=== PATIENT | male | born 1950 | race African-American/Black ===

== ENCOUNTER 2018-01-10 01:21 | Inpatient (IN) | payer OTHER ==
[~2018-01-10] VITALS: Ht 172.7 cm; Wt 94.3 kg
[2018-01-10 03:20] LABS: BASOPHILS % 0.4 % (0.0-2.0); EOSINOPHILS % 2.3 % (0.0-5.0); HEMOGLOBIN. 15.1 g/dL (14.0-18.0); LYMPHOCYTES % 25.4 % (20.0-50.0); MEAN CORPUSCULAR HEMOGLOBIN 28.2 pg (28.0-32.0); MEAN CORPUSCULAR VOLUME 83.9 fL (80.0-94.0); MEAN PLATELET VOLUME 9.1 fl (7.4-10.4); MONOCYTES % 5.7 % (2.0-8.0); NEUTROPHILS % 66.2 % (40.0-76.0); PLATELET 277 x1000/uL (130-400); RED BLOOD CELL COUNT 5.36 mill/uL (4.7-6.1); RED CELL DISTRIBUTION WIDTH 14.6 % (11.6-14.6)
[2018-01-10 03:27] LABS: CHLORIDE 105 mEq/L (98-107)
[2018-01-10 03:34] LABS: D-DIMER 0.99 mg/L FEU (<0.50); PARTIAL THROMBOPLASTIN TIME 26.1 sec (23.4-31.0); PROTHROMBIN TIME 10.1 sec (9.1-11.1)
[2018-01-10] MEDS ORDERED: ENOXAPARIN 80MG/0.8ML SYR SUBCUT NR (04:15)
[2018-01-10] MEDS ORDERED: ASPIRIN 325MG EC TABLET PO ONE (05:00)
[2018-01-10] MEDS ORDERED: ACETAMINOPHEN 650MG/20.3ML UDC GT PRN (07:45)
[2018-01-10] MEDS ORDERED: HYDROCODONE/ACETAMINOPHEN 5/325MG TABLET PO PRN (07:45)
[2018-01-10] MEDS ORDERED: MAGNESIUM/ALUMINUM HYDROXIDE/SIMETHICONE 30ML UDC PO PRN (07:45)
[2018-01-10] MEDS ORDERED: ACETAMINOPHEN 650MG SUPP PR PRN (07:45)
[2018-01-10] MEDS ORDERED: LORAZEPAM 0.5MG TABLET PO PRN (07:45)
[2018-01-10] MEDS ORDERED: GUAIFENESIN 200MG/10ML SUGAR FREE UDC PO PRN (07:45)
[2018-01-10] MEDS ORDERED: IPRATROPIUM/ALBUTEROL 0.5-3(2.5)MG/3ML NEB INH PRN (07:45)
[2018-01-10] MEDS ORDERED: ACETAMINOPHEN 325MG TABLET PO PRN (07:45)
[2018-01-10 09:00] VITALS: BP 160/80
[2018-01-10] MEDS ORDERED: DEXT 5%/0.45% NACL 1000ML 1,000 ML IV ONE (09:04)
[2018-01-10] MEDS ORDERED: ONDANSETRON 4MG ODT PO PRN (09:15)
[2018-01-10] MEDS ORDERED: CLONIDINE 0.2MG TABLET PO PRN (09:30)
[2018-01-10] MEDS: NITROGLYCERIN OINT 1GM/INCH UDPKT TD SCH ×4 (10:20→22:00)
[2018-01-10] MEDS: AMLODIPINE 5MG TABLET PO SCH ×2 (10:20→11:19)
[2018-01-10] MEDS ORDERED: ALLOPURINOL 100 MG TABLET PO SCH (11:00)
[2018-01-10 11:46] LABS: BASOPHILS % 0.4 % (0.0-2.0); EOSINOPHILS % 1.7 % (0.0-5.0); HEMATOCRIT. 43.2 % (42.0-52.0); HEMOGLOBIN. 14.7 g/dL (14.0-18.0); LYMPHOCYTES % 31.4 % (20.0-50.0); MEAN CORPUSCULAR HEMOGLOBIN 28.5 pg (28.0-32.0); MEAN PLATELET VOLUME 9.2 fl (7.4-10.4); MONOCYTES % 4.4 % (2.0-8.0); NEUTROPHILS % 62.1 % (40.0-76.0); PLATELET 271 x1000/uL (130-400); RED BLOOD CELL COUNT 5.14 mill/uL (4.7-6.1); RED CELL DISTRIBUTION WIDTH 14.4 % (11.6-14.6)
[2018-01-10 11:56] LABS: CHLORIDE 107 mEq/L (98-107)
[2018-01-10 12:00] VITALS: BP 168/88
[2018-01-10 12:05] LABS: CREATINE KINASE 161 IU/L (39-308)
[2018-01-10 12:08] LABS: CREATINE KINASE MB FRACTION 4.7 ng/mL (0.5-3.6)
[2018-01-10 12:45] VITALS: BP 160/80
[2018-01-10] MEDS ORDERED: ALPRAZOLAM 0.5 MG TABLET PO PRN (14:21)
[2018-01-10] MEDS: CLONIDINE 0.1MG TABLET PO PRN ×2 (14:30→22:58)
[2018-01-10] MEDS ORDERED: NICOTINE 7MG PATCH TD SCH (14:30)
[2018-01-10] MEDS ORDERED: IOHEXOL-350 100 ML BOTTLE ONE (15:20)
[2018-01-10 16:00] VITALS: BP 163/85
[2018-01-10 16:57] LABS: CLARITY URINE CLEAR (CLEAR); COLOR URINE YELLOW (YELLOW); KETONES URINE NEGATIVE (NEGATIVE); LEUKOCYTE ESTERASE URINE NEGATIVE (NEGATIVE); NITRITE URINE NEGATIVE (NEGATIVE); OCCULT BLOOD URINE NEGATIVE (NEGATIVE); PROTEIN URINE 1+ (NEGATIVE); UROBILINOGEN URINE 0.2 E.U./dL (0.2-1.0)
[2018-01-10 17:06] LABS: CREATINE KINASE MB FRACTION 4.3 ng/mL (0.5-3.6)
[2018-01-10 17:13] LABS: *AMPHETAMINES SCREEN URINE NEGATIVE (NEGATIVE); *BARBITURATES SCREEN URINE NEGATIVE (NEGATIVE); *BENZODIAZEPINES SCREEN URINE NEGATIVE (NEGATIVE); *COCAINE SCREEN URINE PRESUMTIVE POSITIVE (NEGATIVE); METHADONE URINE SCREEN NEGATIVE (NEGATIVE); OPIATES URINE SCREEN PRESUMTIVE POSITIVE (NEGATIVE)
[2018-01-10 17:14] LABS: CANNABINOID URINE SCREEN PRESUMTIVE POSITIVE (NEGATIVE); PHENCYCLIDINE URINE SCREEN NEGATIVE (NEGATIVE)
[2018-01-10 20:00] VITALS: BP 154/88
[2018-01-10 23:10] VITALS: BP 161/87
[2018-01-11] MEDS ORDERED: ASPIRIN 81MG EC TABLET PO SCH (09:00)
== END 2018-01-11 00:15 | disposition short-term general hospital (02) | DRG 281 ==
LOC: ER 01:21 → 6WST 04:14 → ENRESERV 06:47
PROVIDERS: ADMIT Internal Medicine; ATTEND Internal Medicine
DX: I21.4 Non-ST elevation (NSTEMI) myocardial infarction (principal); E46 Unspecified protein-calorie malnutrition; I69.351 Hemiplegia and hemiparesis following cerebral infarction affecting right dominant side; N17.9 Acute kidney failure, unspecified; F14.10 Cocaine abuse, uncomplicated; F17.210 Nicotine dependence, cigarettes, uncomplicated; I12.9 Hypertensive chronic kidney disease with stage 1 through stage 4 chronic kidney disease, or unspecified chronic kidney disease; N18.3 Chronic kidney disease, stage 3 (moderate); R79.1 Abnormal coagulation profile; M10.9 Gout, unspecified; R29.810 Facial weakness; Z79.82 Long term (current) use of aspirin; Z85.46 Personal history of malignant neoplasm of prostate; Z90.79 Acquired absence of other genital organ(s); Z68.31 Body mass index [BMI] 31.0-31.9, adult
CPT/HCPCS: 36415; 71045; 71275; 80053; 80305; 81003; 82550; 82553; 83036; 83690; 83735; 83880; 84484; 84550; 85025; 85379; 85610; 85730; 93005; 93306; 93970; 96372; 99285; J1650; Q9967

== ENCOUNTER 2018-12-01 21:34 | Inpatient (IN) | payer MEDICARE, OTHER ==
[~2018-12-01] VITALS: Ht 175.3 cm; Wt 90.4 kg
[2018-12-01] MEDS ORDERED: SODIUM CHLORIDE 0.9% 1,000 ML IV ONE (22:04)
[2018-12-01] MEDS ORDERED: CLONIDINE 0.1MG TABLET PO ONE (22:15)
[2018-12-01 22:53] LABS: BASOPHILS % 0.6 % (0.0-2.0); EOSINOPHILS % 0.9 % (0.0-5.0); HEMATOCRIT. 41.1 % (42.0-52.0); HEMOGLOBIN. 13.5 g/dL (14.0-18.0); LYMPHOCYTES % 12.6 % (20.0-50.0); MEAN CORPUSCULAR HEMOGLOBIN 26.8 pg (28.0-32.0); MEAN CORPUSCULAR VOLUME 81.4 fL (80.0-94.0); MEAN PLATELET VOLUME 9.1 fl (7.4-10.4); NEUTROPHILS % 80.9 % (40.0-76.0); PLATELET 233 x1000/uL (130-400); RED BLOOD CELL COUNT 5.04 mill/uL (4.7-6.1); RED CELL DISTRIBUTION WIDTH 15.9 % (11.6-14.6)
[2018-12-01 22:55] LABS: CHLORIDE 105 mEq/L (98-107)
[2018-12-01 22:58] LABS: INR 1.3; PROTHROMBIN TIME 12.9 sec (9.6-11.0)
[2018-12-01] MEDS ORDERED: ENOXAPARIN 60MG/0.6ML SYR SUBCUT ONE (23:30)
[2018-12-01] MEDS ORDERED: ASPIRIN 325MG EC TABLET PO ONE (23:45)
[2018-12-02] VITALS (62 sets, daily range): BP systolic 146–202; BP diastolic 59–140
[2018-12-02] MEDS ORDERED: CLONIDINE 0.1MG TABLET PO PRN (00:30)
[2018-12-02] MEDS ORDERED: LORAZEPAM 2MG/ML CPJ IV PRN (00:30)
[2018-12-02] MEDS ORDERED: DIPHENHYDRAMINE 50MG/ML VIAL IV PRN (00:30)
[2018-12-02] MEDS ORDERED: ACETAMINOPHEN 325MG TABLET PO PRN (00:30)
[2018-12-02] MEDS ORDERED: ONDANSETRON HCL 4MG/2ML INJ IV PRN (00:30)
[2018-12-02] MEDS ORDERED: IPRATROPIUM/ALBUTEROL 0.5-3(2.5)MG/3ML NEB INH PRN (00:30)
[2018-12-02] MEDS ORDERED: GUAIFENESIN 200MG/10ML SUGAR FREE UDC PO PRN (00:30)
[2018-12-02] MEDS ORDERED: MAGNESIUM/ALUMINUM HYDROXIDE/SIMETHICONE 30ML UDC PO PRN (00:30)
[2018-12-02] MEDS ORDERED: HYDRALAZINE 20MG/ML VIAL IV PRN (00:30)
[2018-12-02] MEDS ORDERED: HYDRALAZINE 20MG/ML VIAL IV NR (01:30)
[2018-12-02] MEDS ORDERED: CLONIDINE 0.1MG TABLET PO SCH (06:00)
[2018-12-02] MEDS: SODIUM CHLORIDE 0.9% INJ 3ML FLUSH IVF SCH ×3 (06:52→21:07)
[2018-12-02] MEDS ORDERED: ASPI-986 PO (07:04)
[2018-12-02] MEDS ORDERED: ATOR10TA PO (07:04)
[2018-12-02] MEDS ORDERED: CITA10SO PO (07:04)
[2018-12-02] MEDS ORDERED: LISI2.5T47 PO (07:11)
[2018-12-02] MEDS ORDERED: LABE100T5 MT (07:11)
[2018-12-02] MEDS ORDERED: AMLO2.5T2 PO (07:11)
[2018-12-02] MEDS ORDERED: HYDR-4133 PO (07:11)
[2018-12-02] MEDS ORDERED: COR3 PO (07:11)
[2018-12-02] MEDS ORDERED: NITROGLYCERIN OINT 1GM/INCH UDPKT TD SCH ×2 (08:00→12:00)
[2018-12-02] MEDS: ASPIRIN 81MG EC TABLET PO SCH (08:07)
[2018-12-02 08:25] LABS: *AMPHETAMINES SCREEN URINE NEGATIVE (NEGATIVE)
[2018-12-02 08:26] LABS: *BARBITURATES SCREEN URINE NEGATIVE (NEGATIVE); *BENZODIAZEPINES SCREEN URINE NEGATIVE (NEGATIVE); *COCAINE SCREEN URINE PRESUMTIVE POSITIVE (NEGATIVE); METHADONE URINE SCREEN NEGATIVE (NEGATIVE); OPIATES URINE SCREEN NEGATIVE (NEGATIVE)
[2018-12-02 08:27] LABS: CANNABINOID URINE SCREEN PRESUMTIVE POSITIVE (NEGATIVE); PHENCYCLIDINE URINE SCREEN NEGATIVE (NEGATIVE)
[2018-12-02] MEDS ORDERED: ENOXAPARIN 30MG/0.3ML SYR SUBCUT SCH (09:00)
[2018-12-02] MEDS ORDERED: AMLODIPINE 10MG TABLET PO SCH ×2 (09:00)
[2018-12-02] MEDS ORDERED: NICARDIPINE 40MG/200ML PREMIX 200 ML IV SCH (09:15)
[2018-12-02 09:33] LABS: CREATINE KINASE MB FRACTION 9.3 ng/mL (0.5-3.6)
[2018-12-02] MEDS ORDERED: NITROGLYCERIN 50MG PREMIX 250 ML IV STA (09:45)
[2018-12-02] MEDS: NITROGLYCERIN 50MG PREMIX 250 ML IV PRN ×3 (10:36→20:32)
[2018-12-02] MEDS: HYDRALAZINE HCL 100MG TABLET PO SCH ×2 (13:04→21:09)
[2018-12-02] MEDS: CLONIDINE 0.1MG TABLET PO SCH ×2 (13:04→21:09)
[2018-12-02] MEDS: HYDRALAZINE 20MG/ML VIAL IV PRN ×2 (14:01→22:18)
[2018-12-02 15:18] LABS: CREATINE KINASE MB FRACTION 6.9 ng/mL (0.5-3.6)
[2018-12-02] MEDS ORDERED: CLONIDINE 0.2MG TABLET PO PRN (20:00)
[2018-12-02] MEDS: AMLODIPINE 10MG TABLET PO SCH (20:32)
[2018-12-02] MEDS: ATORVASTATIN CALCIUM 20MG TABLET PO SCH (20:32)
[2018-12-02] MEDS: HYDROCODONE/ACETAMINOPHEN 10/325MG TABLET PO PRN (22:11)
[2018-12-03] VITALS (92 sets, daily range): BP systolic 118–177; BP diastolic 54–85
[2018-12-03] MEDS: NITROGLYCERIN 50MG PREMIX 250 ML IV PRN ×3 (01:31→16:16)
[2018-12-03] MEDS: HYDRALAZINE 20MG/ML VIAL IV PRN (04:43)
[2018-12-03] MEDS: CLONIDINE 0.1MG TABLET PO SCH ×2 (05:10→13:42)
[2018-12-03] MEDS: SODIUM CHLORIDE 0.9% INJ 3ML FLUSH IVF SCH ×3 (05:11→21:03)
[2018-12-03] MEDS: HYDRALAZINE HCL 100MG TABLET PO SCH ×3 (05:11→21:03)
[2018-12-03 05:13] LABS: BASOPHILS % 0.3 % (0.0-2.0); EOSINOPHILS % 0.5 % (0.0-5.0); HEMATOCRIT. 35.5 % (42.0-52.0); HEMOGLOBIN. 11.8 g/dL (14.0-18.0); LYMPHOCYTES % 8.8 % (20.0-50.0); MEAN CORPUSCULAR VOLUME 81.2 fL (80.0-94.0); MEAN PLATELET VOLUME 9.3 fl (7.4-10.4); MONOCYTES % 8.7 % (2.0-8.0); NEUTROPHILS % 81.7 % (40.0-76.0); PLATELET 178 x1000/uL (130-400); RED BLOOD CELL COUNT 4.37 mill/uL (4.7-6.1); RED CELL DISTRIBUTION WIDTH 16.3 % (11.6-14.6)
[2018-12-03 05:18] LABS: CHLORIDE 108 mEq/L (98-107)
[2018-12-03 05:27] LABS: LDL CHOLESTEROL 63 mg/dL (5-100)
[2018-12-03 05:28] LABS: HDL CHOLESTEROL 38 mg/dL (40-59)
[2018-12-03 05:29] LABS: T4 FREE 1.08 ng/dL (0.76-1.46)
[2018-12-03] MEDS ORDERED: KCL 20MEQ/100ML PREMIX 100 ML IV NR (07:00)
[2018-12-03] MEDS: ASPIRIN 81MG EC TABLET PO SCH (08:38)
[2018-12-03] MEDS: DOXAZOSIN MESYLATE 2MG TABLET PO SCH ×2 (08:38→16:54)
[2018-12-03] MEDS: AMLODIPINE 10MG TABLET PO SCH ×2 (08:39→20:03)
[2018-12-03] MEDS ORDERED: AMLODIPINE 10MG TABLET PO SCH (09:00)
[2018-12-03] MEDS ORDERED: POTASSIUM CHLORIDE 20MEQ/PACKET PO NR (09:30)
[2018-12-03] MEDS: FUROSEMIDE 40MG/4ML VIAL IVP SCH (10:39)
[2018-12-03] MEDS: LOSARTAN POTASSIUM 25 MG TABLET PO SCH (14:55)
[2018-12-03] MEDS: ENOXAPARIN 40MG/0.4ML SYR SUBCUT SCH (14:55)
[2018-12-03] MEDS: ATORVASTATIN CALCIUM 20MG TABLET PO SCH (20:03)
[2018-12-03 20:14] LABS: CLARITY URINE CLEAR (CLEAR); COLOR URINE YELLOW (YELLOW); KETONES URINE NEGATIVE (NEGATIVE); LEUKOCYTE ESTERASE URINE NEGATIVE (NEGATIVE); NITRITE URINE NEGATIVE (NEGATIVE); OCCULT BLOOD URINE NEGATIVE (NEGATIVE); PH URINE 5.5 (4.5-8.0); PROTEIN URINE NEGATIVE (NEGATIVE); SPECIFIC GRAVITY URINE 1.008 (1.005-1.030)
[2018-12-03] MEDS: CLONIDINE 0.2MG TABLET PO SCH (21:03)
[2018-12-04] VITALS (38 sets, daily range): BP systolic 108–146; BP diastolic 56–78
[2018-12-04 05:44] LABS: BASOPHILS % 0.1 % (0.0-2.0); EOSINOPHILS % 0.7 % (0.0-5.0); HEMATOCRIT. 34.9 % (42.0-52.0); HEMOGLOBIN. 11.6 g/dL (14.0-18.0); LYMPHOCYTES % 10.6 % (20.0-50.0); MEAN CORPUSCULAR HEMOGLOBIN 27.2 pg (28.0-32.0); MEAN CORPUSCULAR VOLUME 81.4 fL (80.0-94.0); MEAN PLATELET VOLUME 9.2 fl (7.4-10.4); MONOCYTES % 7.4 % (2.0-8.0); NEUTROPHILS % 81.2 % (40.0-76.0); PLATELET 146 x1000/uL (130-400); RED BLOOD CELL COUNT 4.28 mill/uL (4.7-6.1); RED CELL DISTRIBUTION WIDTH 16.4 % (11.6-14.6)
[2018-12-04] MEDS: HYDRALAZINE HCL 100MG TABLET PO SCH ×3 (05:57→22:00)
[2018-12-04] MEDS: SODIUM CHLORIDE 0.9% INJ 3ML FLUSH IVF SCH (05:57)
[2018-12-04] MEDS: CLONIDINE 0.2MG TABLET PO SCH ×3 (05:57→21:33)
[2018-12-04] MEDS: DOXAZOSIN MESYLATE 2MG TABLET PO SCH ×2 (08:09→16:21)
[2018-12-04] MEDS: AMLODIPINE 10MG TABLET PO SCH ×2 (08:09→21:00)
[2018-12-04] MEDS: FUROSEMIDE 40MG/4ML VIAL IVP SCH (08:09)
[2018-12-04] MEDS: ASPIRIN 81MG EC TABLET PO SCH (08:09)
[2018-12-04] MEDS: LOSARTAN POTASSIUM 25 MG TABLET PO SCH (08:11)
[2018-12-04] MEDS ORDERED: POTASSIUM CHLORIDE 20MEQ TABLET SR PO NR (10:45)
[2018-12-04] MEDS: ENOXAPARIN 40MG/0.4ML SYR SUBCUT SCH (16:02)
[2018-12-04] MEDS: ATORVASTATIN CALCIUM 20MG TABLET PO SCH (21:33)
[2018-12-05] VITALS: BP 119/66
[2018-12-05 04:00] VITALS: BP 145/82
[2018-12-05] MEDS: HYDRALAZINE HCL 100MG TABLET PO SCH ×3 (06:24→22:45)
[2018-12-05 06:25] LABS: BASOPHILS % 0.1 % (0.0-2.0); EOSINOPHILS % 1.1 % (0.0-5.0); HEMATOCRIT. 36.2 % (42.0-52.0); HEMOGLOBIN. 11.9 g/dL (14.0-18.0); LYMPHOCYTES % 12.9 % (20.0-50.0); MEAN CORPUSCULAR HEMOGLOBIN 26.9 pg (28.0-32.0); MEAN CORPUSCULAR VOLUME 81.8 fL (80.0-94.0); MEAN PLATELET VOLUME 8.9 fl (7.4-10.4); MONOCYTES % 8.8 % (2.0-8.0); NEUTROPHILS % 77.1 % (40.0-76.0); PLATELET 143 x1000/uL (130-400); RED BLOOD CELL COUNT 4.43 mill/uL (4.7-6.1); RED CELL DISTRIBUTION WIDTH 16.7 % (11.6-14.6)
[2018-12-05 06:30] LABS: CHLORIDE 103 mEq/L (98-107)
[2018-12-05 08:00] VITALS: BP 123/61
[2018-12-05] MEDS: CLONIDINE 0.2MG TABLET PO SCH ×3 (08:09→22:44)
[2018-12-05] MEDS: AMLODIPINE 10MG TABLET PO SCH ×2 (08:37→21:12)
[2018-12-05] MEDS: ASPIRIN 81MG EC TABLET PO SCH (08:49)
[2018-12-05] MEDS: FUROSEMIDE 40MG/4ML VIAL IVP SCH (08:49)
[2018-12-05] MEDS: DOXAZOSIN MESYLATE 2MG TABLET PO SCH ×2 (08:49→16:58)
[2018-12-05] MEDS: HYDROMORPHONE HCL/PF 2MG/ML CPJ IV PRN ×2 (09:35→21:12)
[2018-12-05] MEDS: LOSARTAN POTASSIUM 25 MG TABLET PO SCH (10:17)
[2018-12-05 12:00] VITALS: BP 120/74
[2018-12-05] MEDS: ENOXAPARIN 40MG/0.4ML SYR SUBCUT SCH (13:51)
[2018-12-05 16:00] VITALS: BP 118/79
[2018-12-05 20:00] VITALS: BP 150/80
[2018-12-05] MEDS: ATORVASTATIN CALCIUM 20MG TABLET PO SCH (21:12)
[2018-12-06] VITALS: BP 140/66
[2018-12-06] MEDS: HYDROCODONE/ACETAMINOPHEN 10/325MG TABLET PO PRN (02:21)
[2018-12-06] MEDS: HYDROMORPHONE HCL/PF 2MG/ML CPJ IV PRN (03:33)
[2018-12-06 04:00] VITALS: BP 139/65
[2018-12-06] MEDS: CLONIDINE 0.2MG TABLET PO SCH ×3 (06:29→21:27)
[2018-12-06] MEDS: HYDRALAZINE HCL 100MG TABLET PO SCH ×3 (06:29→21:27)
[2018-12-06 08:00] VITALS: BP 135/75
[2018-12-06] MEDS: ASPIRIN 81MG EC TABLET PO SCH (08:42)
[2018-12-06] MEDS: AMLODIPINE 10MG TABLET PO SCH ×2 (08:43→21:27)
[2018-12-06] MEDS: LOSARTAN POTASSIUM 25 MG TABLET PO SCH (08:43)
[2018-12-06] MEDS: DOXAZOSIN MESYLATE 2MG TABLET PO SCH ×2 (08:43→17:46)
[2018-12-06] MEDS: FUROSEMIDE 40MG/4ML VIAL IVP SCH (08:44)
[2018-12-06] MEDS: DOCUSATE SODIUM 100MG CAPSULE PO PRN ×2 (10:21→21:26)
[2018-12-06 12:00] VITALS: BP 133/67
[2018-12-06] MEDS: ENOXAPARIN 40MG/0.4ML SYR SUBCUT SCH (15:44)
[2018-12-06 16:00] VITALS: BP 144/68
[2018-12-06] MEDS: CLONIDINE 0.1MG TABLET PO PRN ×2 (16:48→16:49)
[2018-12-06 20:00] VITALS: BP 138/66
[2018-12-06] MEDS: ATORVASTATIN CALCIUM 20MG TABLET PO SCH (21:26)
[2018-12-06] MEDS: ZOLPIDEM TARTRATE 5MG TABLET PO PRN (23:45)
[2018-12-07] VITALS: BP 153/72
[2018-12-07 04:00] VITALS: BP 160/80
[2018-12-07] MEDS: CLONIDINE 0.2MG TABLET PO SCH ×3 (05:45→21:41)
[2018-12-07] MEDS: HYDRALAZINE HCL 100MG TABLET PO SCH ×3 (05:45→21:41)
[2018-12-07 07:32] LABS: BASOPHILS % 0.5 % (0.0-2.0); HEMATOCRIT. 38.1 % (42.0-52.0); HEMOGLOBIN. 12.7 g/dL (14.0-18.0); LYMPHOCYTES % 13.9 % (20.0-50.0); MEAN CORPUSCULAR HEMOGLOBIN 26.7 pg (28.0-32.0); MEAN CORPUSCULAR VOLUME 80.3 fL (80.0-94.0); MEAN PLATELET VOLUME 8.7 fl (7.4-10.4); MONOCYTES % 10.3 % (2.0-8.0); NEUTROPHILS % 73.3 % (40.0-76.0); PLATELET 151 x1000/uL (130-400); RED BLOOD CELL COUNT 4.75 mill/uL (4.7-6.1); RED CELL DISTRIBUTION WIDTH 16.1 % (11.6-14.6)
[2018-12-07 07:38] LABS: CHLORIDE 103 mEq/L (98-107)
[2018-12-07 08:00] VITALS: BP 164/79
[2018-12-07] MEDS: AMLODIPINE 10MG TABLET PO SCH ×2 (08:39→21:00)
[2018-12-07] MEDS: ASPIRIN 81MG EC TABLET PO SCH (08:39)
[2018-12-07] MEDS: LOSARTAN POTASSIUM 25 MG TABLET PO SCH (08:39)
[2018-12-07] MEDS: FUROSEMIDE 40MG/4ML VIAL IVP SCH (08:39)
[2018-12-07] MEDS: DOXAZOSIN MESYLATE 2MG TABLET PO SCH ×2 (08:40→16:25)
[2018-12-07] MEDS: DOCUSATE SODIUM 100MG CAPSULE PO PRN ×2 (08:43→21:41)
[2018-12-07 12:00] VITALS: BP 131/61
[2018-12-07 16:00] VITALS: BP 136/57
[2018-12-07] MEDS: ENOXAPARIN 40MG/0.4ML SYR SUBCUT SCH (16:25)
[2018-12-07 20:00] VITALS: BP 130/61
[2018-12-07] MEDS: ZOLPIDEM TARTRATE 5MG TABLET PO PRN (21:41)
[2018-12-07] MEDS: ATORVASTATIN CALCIUM 20MG TABLET PO SCH (21:41)
[2018-12-08] VITALS: BP 120/70
[2018-12-08 04:00] VITALS: BP 120/75
[2018-12-08] MEDS: HYDRALAZINE HCL 100MG TABLET PO SCH ×3 (05:31→21:03)
[2018-12-08] MEDS: CLONIDINE 0.2MG TABLET PO SCH ×3 (05:31→21:03)
[2018-12-08 08:11] VITALS: BP 152/87
[2018-12-08] MEDS: DOXAZOSIN MESYLATE 2MG TABLET PO SCH ×2 (08:36→17:19)
[2018-12-08] MEDS: AMLODIPINE 10MG TABLET PO SCH ×2 (08:36→21:03)
[2018-12-08] MEDS: ASPIRIN 81MG EC TABLET PO SCH (08:36)
[2018-12-08] MEDS: DOCUSATE SODIUM 100MG CAPSULE PO PRN (08:36)
[2018-12-08] MEDS: LOSARTAN POTASSIUM 25 MG TABLET PO SCH (08:36)
[2018-12-08] MEDS: FUROSEMIDE 40MG/4ML VIAL IVP SCH (08:36)
[2018-12-08] MEDS ORDERED: LACTULOSE 20G/30ML UDC PO NR (09:00)
[2018-12-08 12:00] VITALS: BP 169/98
[2018-12-08] MEDS: ENOXAPARIN 40MG/0.4ML SYR SUBCUT SCH (14:23)
[2018-12-08 15:20] VITALS: BP 160/86
[2018-12-08 20:00] VITALS: BP 150/73
[2018-12-08] MEDS: ATORVASTATIN CALCIUM 20MG TABLET PO SCH (21:03)
[2018-12-08] MEDS: ZOLPIDEM TARTRATE 5MG TABLET PO PRN (21:07)
[2018-12-09 00:43] VITALS: BP 129/71
[2018-12-09 04:00] VITALS: BP 132/69
[2018-12-09] MEDS: CLONIDINE 0.2MG TABLET PO SCH ×2 (05:20→14:18)
[2018-12-09] MEDS: HYDRALAZINE HCL 100MG TABLET PO SCH ×2 (05:21→14:19)
[2018-12-09 06:52] LABS: BASOPHILS % 0.6 % (0.0-2.0); EOSINOPHILS % 3.2 % (0.0-5.0); HEMATOCRIT. 35.6 % (42.0-52.0); HEMOGLOBIN. 11.7 g/dL (14.0-18.0); MEAN CORPUSCULAR HEMOGLOBIN 26.6 pg (28.0-32.0); MEAN CORPUSCULAR VOLUME 81.3 fL (80.0-94.0); MEAN PLATELET VOLUME 8.6 fl (7.4-10.4); MONOCYTES % 8.9 % (2.0-8.0); NEUTROPHILS % 68.3 % (40.0-76.0); PLATELET 159 x1000/uL (130-400); RED BLOOD CELL COUNT 4.38 mill/uL (4.7-6.1)
[2018-12-09 07:28] LABS: CHLORIDE 105 mEq/L (98-107)
[2018-12-09 08:00] VITALS: BP 130/67
[2018-12-09] MEDS: FUROSEMIDE 40MG/4ML VIAL IVP SCH (08:34)
[2018-12-09] MEDS: ASPIRIN 81MG EC TABLET PO SCH (08:35)
[2018-12-09] MEDS: AMLODIPINE 10MG TABLET PO SCH (08:35)
[2018-12-09] MEDS: DOXAZOSIN MESYLATE 2MG TABLET PO SCH (08:35)
[2018-12-09] MEDS: LOSARTAN POTASSIUM 25 MG TABLET PO SCH (08:35)
[2018-12-09] MEDS ORDERED: POTASSIUM CHLORIDE 20MEQ TABLET SR PO SCH (08:45)
[2018-12-09 12:00] VITALS: BP 130/66
[2018-12-09] MEDS: ENOXAPARIN 40MG/0.4ML SYR SUBCUT SCH (14:19)
[2018-12-09 17:02] VITALS: BP 130/66
== END 2018-12-09 18:14 | disposition home or self-care (01) | DRG 280 ==
LOC: ER 21:34 → 5EST 23:29 → EDBEDREQSVC 23:40 → EDBEDREQTM 23:40 → EDBEDREQ 23:40 → ENRESERV 12-02 00:17 → MICUSO 12-02 10:27 → 7WST 12-04 10:44 → 6WST 12-08 19:42
PROVIDERS: ADMIT Internal Medicine; ATTEND Internal Medicine
DX: I21.4 Non-ST elevation (NSTEMI) myocardial infarction (principal); E43 Unspecified severe protein-calorie malnutrition; N17.0 Acute kidney failure with tubular necrosis; I69.351 Hemiplegia and hemiparesis following cerebral infarction affecting right dominant side; G93.40 Encephalopathy, unspecified; I13.0 Hypertensive heart and chronic kidney disease with heart failure and stage 1 through stage 4 chronic kidney disease, or unspecified chronic kidney disease; I42.9 Cardiomyopathy, unspecified; N18.9 Chronic kidney disease, unspecified; I50.9 Heart failure, unspecified; F10.10 Alcohol abuse, uncomplicated; I16.0 Hypertensive urgency; F14.10 Cocaine abuse, uncomplicated; F17.210 Nicotine dependence, cigarettes, uncomplicated; E87.6 Hypokalemia; K59.00 Constipation, unspecified; I27.21 Secondary pulmonary arterial hypertension; Z85.46 Personal history of malignant neoplasm of prostate; Z79.82 Long term (current) use of aspirin; Z79.899 Other long term (current) drug therapy; Z82.49 Family history of ischemic heart disease and other diseases of the circulatory system; Z91.14 Patient's other noncompliance with medication regimen; Z91.19 Patient's noncompliance with other medical treatment and regimen; Z68.29 Body mass index [BMI] 29.0-29.9, adult; Z59.0 Homelessness
CPT/HCPCS: 36415; 71045; 80048; 80061; 80305; 82550; 82553; 83036; 83735; 83880; 84100; 84439; 84443; 84484; 93005; 93306; 93970; 96361; 96372; 96374; 96375; 97162; 99291; A6261; J0360; J1170; J1650; J1940; J2060; J3480; J3490; J7030

== ENCOUNTER 2024-07-01 07:57 | Inpatient (IN) | payer MEDICARE, OTHER ==
[~2024-07-01] VITALS: Ht 170.2 cm; Wt 73.5 kg
[~2024-07-01 07:57] MED LIST: AMLO2.5T2 PO; ASPI-986 PO; ATOR10TA PO; CITA10SO PO
[2024-07-01 08:50] LABS: BASOPHILS % 0.1 % (0.0-2.0); EOSINOPHILS % 6.2 % (0.0-5.0); HEMATOCRIT. 44.8 % (42.0-52.0); LYMPHOCYTES % 21.1 % (20.0-50.0); MEAN CORPUSCULAR HEMOGLOBIN 28.7 pg (28.0-32.0); MEAN CORPUSCULAR HGB CONC 33.5 g/dL (31.0-37.0); MEAN CORPUSCULAR VOLUME 85.7 fL (80.0-94.0); MEAN PLATELET VOLUME 8.7 fl (7.4-10.4); MONOCYTES % 3.2 % (2.0-8.0); NEUTROPHILS % 69.4 % (40.0-76.0); PLATELET 192 x1000/uL (130-400); RED BLOOD CELL COUNT 5.22 mill/uL (4.7-6.1); RED CELL DISTRIBUTION WIDTH 14.2 % (11.6-14.6); WHITE BLOOD COUNT 7.9 x1000/uL (4.5-11.0)
[2024-07-01 08:58] LABS: CHLORIDE 106 mEq/L (98-107); POTASSIUM 3.4 mEq/L (3.5-5.1); SODIUM 143 mEq/L (136-145)
[2024-07-01 08:59] LABS: CALCIUM 9.7 mg/dL (8.7-10.4); CARBON DIOXIDE 31 mEq/L (21-32)
[2024-07-01 09:04] LABS: CREATININE 1.5 mg/dL (0.6-1.3); GLUCOSE 147 mg/dL (70-105); UREA NITROGEN BLOOD 14 mg/dL (9-23)
[2024-07-01 09:09] LABS: TROPONIN I HIGH SENSITIVITY 1528 ng/L (3.0-53)
[2024-07-01] MEDS: ENOXAPARIN 80MG/0.8ML SYR SUBCUT ONE (09:56)
[2024-07-01] MEDS ORDERED: CARVEDILOL 12.5MG TABLET PO NR (12:30)
[2024-07-01] MEDS: CARVEDILOL 6.25 MG TABLET PO NR (13:13)
[2024-07-01 13:16] LABS: TROPONIN I HIGH SENSITIVITY 18026 ng/L (3.0-53)
[2024-07-01] MEDS: NITROGLYCERIN OINT 1GM/INCH UDPKT TD SCH (13:23)
[2024-07-01] MEDS ORDERED: NIFE90TA60 PO (15:12)
[2024-07-01] MEDS ORDERED: LOSA50TA41 (15:12)
[2024-07-01] MEDS ORDERED: CARV12.545 PO (15:12)
[2024-07-01] MEDS ORDERED: IPRATROPIUM/ALBUTEROL 0.5-3(2.5)MG/3ML NEB NEB PRN (15:15)
[2024-07-01] MEDS ORDERED: ACETAMINOPHEN 325MG TABLET PO PRN (15:15)
[2024-07-01] MEDS ORDERED: DEXTROSE 50% WATER 50ML SYRINGE IV PRN (15:15)
[2024-07-01] MEDS ORDERED: ENOXAPARIN 40MG/0.4ML SYR SUBCUT SCH (15:15)
[2024-07-01] MEDS ORDERED: MORPHINE SULFATE 2 MG/ML INJ (NOT FOR IM USE) IV PRN (15:15)
[2024-07-01 16:46] LABS: PROTHROMBIN TIME 11.1 sec (9.6-11.0)
[2024-07-01] MEDS: BLOOD SUGAR DIAGNOSTIC STRIP TEST SCH (17:18)
[2024-07-01] MEDS: INSULIN LISPRO 100 UNITS/ML SUBCUT SCH (17:20)
[2024-07-01] MEDS ORDERED: NALOXONE HCL 0.4MG/ML VIAL IV PRN (19:30)
[2024-07-01] MEDS ORDERED: ZOLPIDEM TARTRATE 5MG TABLET PO PRN (20:30)
[2024-07-01] MEDS ORDERED: ATORVASTATIN CALCIUM 20MG TABLET PO SCH (21:00)
[2024-07-01] MEDS: CARVEDILOL 12.5MG TABLET PO SCH (21:00)
[2024-07-01] MEDS: ATORVASTATIN CALCIUM 40MG TABLET PO SCH (21:36)
[2024-07-01] MEDS: ENOXAPARIN 80MG/0.8ML SYR SUBCUT SCH (21:43)
[2024-07-02] VITALS (10 sets, daily range): BP systolic 113–176; BP diastolic 70–104; PULSE 54–71; RESP 12–24; TEMP 35.8–36.6; O2SAT 95–100
[2024-07-02 00:29] LABS: CREATINE KINASE MB FRACTION 76.1 ng/mL (0.5-3.6)
[2024-07-02 00:31] LABS: CREATINE KINASE 718 IU/L (46-171)
[2024-07-02 01:01] LABS: TROPONIN I HIGH SENSITIVITY > 25000 ng/L (3.0-53)
[2024-07-02 01:11] LABS: *AMPHETAMINES SCREEN URINE NEGATIVE (NEGATIVE); *BARBITURATES SCREEN URINE NEGATIVE (NEGATIVE); *BENZODIAZEPINES SCREEN URINE NEGATIVE (NEGATIVE); *COCAINE SCREEN URINE NEGATIVE (NEGATIVE); METHADONE URINE SCREEN NEGATIVE (NEGATIVE); OPIATES URINE SCREEN NEGATIVE (NEGATIVE)
[2024-07-02 01:12] LABS: CANNABINOID URINE SCREEN PRESUMPTIVE POSITIVE (NEGATIVE); ECSTASY MDMA SCREEN URINE NEGATIVE (NEGATIVE); PHENCYCLIDINE URINE SCREEN NEGATIVE (NEGATIVE)
[2024-07-02 07:26] LABS: CARBON DIOXIDE 31 mEq/L (21-32); CHLORIDE 103 mEq/L (98-107); SODIUM 141 mEq/L (136-145)
[2024-07-02 07:27] LABS: CALCIUM 9.8 mg/dL (8.7-10.4)
[2024-07-02 07:28] LABS: POTASSIUM 2.7 mEq/L (3.5-5.1)
[2024-07-02 07:30] LABS: CREATINE KINASE MB FRACTION 42.6 ng/mL (0.5-3.6)
[2024-07-02 07:32] LABS: CREATINE KINASE 467 IU/L (46-171); CREATININE 1.2 mg/dL (0.6-1.3); GLUCOSE 115 mg/dL (70-105); TRIGLYCERIDE 89 mg/dL (0-150); UREA NITROGEN BLOOD 13 mg/dL (9-23)
[2024-07-02 07:33] LABS: LDL CHOLESTEROL 66 mg/dL (5-100)
[2024-07-02 07:34] LABS: CHOLESTEROL 135 mg/dL (<200); HDL CHOLESTEROL 48 mg/dL (>55)
[2024-07-02] MEDS: POTASSIUM CHLORIDE 20MEQ TABLET SR PO NR (07:53)
[2024-07-02] MEDS: ASPIRIN 81MG EC TABLET PO SCH (07:54)
[2024-07-02 07:55] LABS: BASOPHILS % 0.2 % (0.0-2.0); EOSINOPHILS % 6.6 % (0.0-5.0); HEMATOCRIT. 43.9 % (42.0-52.0); HEMOGLOBIN. 14.9 g/dL (14.0-18.0); MEAN CORPUSCULAR HEMOGLOBIN 28.8 pg (28.0-32.0); MEAN CORPUSCULAR HGB CONC 33.8 g/dL (31.0-37.0); MEAN CORPUSCULAR VOLUME 85.2 fL (80.0-94.0); MEAN PLATELET VOLUME 9.2 fl (7.4-10.4); MONOCYTES % 4.7 % (2.0-8.0); NEUTROPHILS % 57.5 % (40.0-76.0); PLATELET 182 x1000/uL (130-400); RED BLOOD CELL COUNT 5.16 mill/uL (4.7-6.1); RED CELL DISTRIBUTION WIDTH 14.1 % (11.6-14.6); WHITE BLOOD COUNT 8.4 x1000/uL (4.5-11.0)
[2024-07-02 08:12] LABS: TROPONIN I HIGH SENSITIVITY > 25000 ng/L (3.0-53)
[2024-07-02] MEDS: SODIUM CHLORIDE 0.45% 1,000 ML IV SCH (08:30)
[2024-07-02] MEDS: PANTOPRAZOLE SODIUM 40 MG/VIAL IV SCH (08:33)
[2024-07-02] MEDS: POTASSIUM CHLORIDE 20 MEQ in DEXT 5% WATER 90 ML IV SCH (10:57)
[2024-07-02] MEDS ORDERED: POTASSIUM CHLORIDE 20MEQ TABLET SR PO NR (11:45)
[2024-07-02] MEDS ORDERED: IODIXANOL 320MG/ML 100 ML BOTTLE IV ONE (11:49)
[2024-07-02] MEDS ORDERED: HEPARIN 1000 UNITS/ML 10ML ONE (11:49)
[2024-07-02] MEDS ORDERED: LIDOCAINE HCL 1% 10 MG/ML 10ML VIAL ONE (11:49)
[2024-07-02] MEDS ORDERED: MIDAZOLAM HCL 2 MG/2 ML VIAL ONE (12:05)
[2024-07-02] MEDS ORDERED: FENTANYL CITRATE/PF 50MCG/ML 2ML VIAL ONE (12:06)
[2024-07-02] MEDS ORDERED: ACETAMINOPHEN 325MG TABLET PO PRN (12:45)
[2024-07-02] MEDS ORDERED: ATROPINE SULFATE 1MG/10ML SYR IV PRN (12:45)
[2024-07-02] MEDS: ONDANSETRON HCL 4MG/2ML INJ IV PRN (22:06)
[2024-07-03] VITALS (10 sets, daily range): BP systolic 104–163; BP diastolic 45–92; PULSE 55–99; RESP 15–25; TEMP 36.6–36.8; O2SAT 92–99
[2024-07-03] MEDS: CLONIDINE 0.1MG TABLET PO PRN (00:27)
[2024-07-03] MEDS: HYDROCODONE/ACETAMINOPHEN 5/325MG TABLET PO PRN (01:35)
[2024-07-03] MEDS ORDERED: HYDRALAZINE 20MG/ML VIAL IV PRN (03:30)
[2024-07-03] MEDS: CYCLOBENZAPRINE 10MG TABLET PO SCH (03:40)
[2024-07-03 06:55] LABS: BASOPHILS % 0.2 % (0.0-2.0); EOSINOPHILS % 3.4 % (0.0-5.0); HEMATOCRIT. 45.2 % (42.0-52.0); LYMPHOCYTES % 19.4 % (20.0-50.0); MEAN CORPUSCULAR HEMOGLOBIN 28.4 pg (28.0-32.0); MEAN CORPUSCULAR HGB CONC 33.2 g/dL (31.0-37.0); MEAN CORPUSCULAR VOLUME 85.4 fL (80.0-94.0); MEAN PLATELET VOLUME 9.1 fl (7.4-10.4); MONOCYTES % 7.3 % (2.0-8.0); NEUTROPHILS % 69.7 % (40.0-76.0); PLATELET 163 x1000/uL (130-400); RED BLOOD CELL COUNT 5.29 mill/uL (4.7-6.1); RED CELL DISTRIBUTION WIDTH 14.2 % (11.6-14.6); WHITE BLOOD COUNT 8.8 x1000/uL (4.5-11.0)
[2024-07-03 07:53] LABS: CARBON DIOXIDE 27 mEq/L (21-32); CHLORIDE 104 mEq/L (98-107); POTASSIUM 3.3 mEq/L (3.5-5.1); SODIUM 142 mEq/L (136-145)
[2024-07-03 07:55] LABS: CALCIUM 9.7 mg/dL (8.7-10.4)
[2024-07-03 07:59] LABS: CREATININE 1.4 mg/dL (0.6-1.3); GLUCOSE 112 mg/dL (70-105)
[2024-07-03 08:00] LABS: UREA NITROGEN BLOOD 14 mg/dL (9-23)
[2024-07-03 08:42] LABS: TROPONIN I HIGH SENSITIVITY 73218 ng/L (3.0-53)
[2024-07-03] MEDS: CLOPIDOGREL 75MG TABLET PO SCH (08:44)
[2024-07-03] MEDS: POTASSIUM CHLORIDE 20MEQ TABLET SR PO NR (10:30)
[2024-07-03] MEDS ORDERED: CLOP-31 MT (11:12)
[2024-07-03] MEDS ORDERED: ATOR40TA70 MT (11:12)
[2024-07-04] MEDS ORDERED: FAMOTIDINE 20MG/2ML VIAL IV SCH (09:00)
== END 2024-07-03 15:32 | disposition home or self-care (01) | DRG 281 ==
LOC: ER 07:57 → 5EST 10:33 → EDBEDREQ 10:36 → EDBEDREQTM 10:36 → EDBEDREQSVC 10:36
PROVIDERS: ADMIT Internal Medicine; ATTEND Internal Medicine
PROC: 4A023N7 Measurement of Cardiac Sampling and Pressure, Left Heart, Percutaneous Approach (ICD-10-PCS; principal; 2024-07-02)
PROC: B211YZZ Fluoroscopy of Multiple Coronary Arteries using Other Contrast (ICD-10-PCS; 2024-07-02)
PROC: B215YZZ Fluoroscopy of Left Heart using Other Contrast (ICD-10-PCS; 2024-07-02)
DX: I21.4 Non-ST elevation (NSTEMI) myocardial infarction (principal); N17.9 Acute kidney failure, unspecified; E87.6 Hypokalemia; E78.5 Hyperlipidemia, unspecified; F17.210 Nicotine dependence, cigarettes, uncomplicated; I12.9 Hypertensive chronic kidney disease with stage 1 through stage 4 chronic kidney disease, or unspecified chronic kidney disease; J44.9 Chronic obstructive pulmonary disease, unspecified; N18.9 Chronic kidney disease, unspecified; I25.10 Atherosclerotic heart disease of native coronary artery without angina pectoris; R73.9 Hyperglycemia, unspecified; Z79.82 Long term (current) use of aspirin; Z79.899 Other long term (current) drug therapy; Z82.49 Family history of ischemic heart disease and other diseases of the circulatory system; Z83.3 Family history of diabetes mellitus; Z86.73 Personal history of transient ischemic attack (TIA), and cerebral infarction without residual deficits
CPT/HCPCS: 36415; 71045; 80048; 80061; 80305; 82550; 82553; 82962; 83036; 83735; 83880; 84484; 85025; 93005; 93306; 93458; 93970; 99291; A4606; C1769; C1887; C1893; J0360; J1644; J1650; J2003; J2250; J2405; J2470; J3010; J3480; J7060; Q9967